=== PATIENT | male | born 1950 | race Caucasian/White ===

== ENCOUNTER → 2024-09-16 | Outpatient (CLI) | payer MEDICARE, BC, OTHER, SELFPAY ==
--- NOTE | 2024-09-16 13:45 | RAD_ITS ---
EXAM: INJ/ASP PABLO JT SHOULD/HIP/KNEE CLINICAL HISTORY: Chronic right hip pain. COMPARISON: None. TECHNIQUE: The procedure as well as the benefits and possible complications were explained to the patient. Informed consent was obtained. The patient was in the supine position. The overlying skin was prepped and draped in the usual sterile fashion. Following local anesthetic application and under direct fluoroscopic guidance, a 22 gauge spinal needle was placed into the right hip joint. 2 cc of Isovue-300 was injected for confirmation. Following this, 6 mg of betamethasone and 3 cc of 1% lidocaine was injected. The patient tolerated the procedure well. FINDINGS: Right hip injection. RAD/Inj/Asp Pablo Jt Should/Hip/Knee IMPRESSION: Successful right hip injection. Reading Location: [facility]
[2024-09-16] MEDS: Lidocaine 2% (5ml sdv) 5 ML VIAL.MPF INFILT (14:11)
[2024-09-16] MEDS: Betamethasone/Betamethasone 30 MG/5 ML Vial 6 MG INTRAARTIC (14:13)
[2024-09-16] MEDS: Lidocaine 1% (5 ml sdv) 5 ML Vial 3 ML OPERA.SITE (14:13)
== END | disposition home or self-care (01) ==
LOC: RAD 13:34
PROVIDERS: PCP Student in an Organized Health Care Education/Training Program; Referring Provider Physician Assistant; Visit Provider Physician Assistant
DX: M25.551 Pain in right hip (principal); G89.29 Other chronic pain
CPT/HCPCS: 20610; 77002; Q9967; J0702

== ENCOUNTER → 2025-05-11 | Outpatient (CLI) | payer MEDICARE, BC, OTHER, SELFPAY ==
--- NOTE | 2025-05-11 10:00 | RAD_ITS ---
PROCEDURE: INJ/ASP PABLO JT SHOULD/HIP/KNEE 05/11/2025 REASON FOR EXAM: PAIN TECHNIQUE: Procedure Code: RADINJ/ASP MJ Modality: DX Procedure: INJ/ASP PABLO JT SHOULD/HIP/KNEE Fluoroscopy time: 84 seconds. Total dosage 24.5 mGy COMPARISON: 09/16/2024 FINDINGS: After obtaining a signed informed consent patient was placed in supine position on fluoroscopy utilized to localize injection location in the right hip. The area is prepped and draped under usual sterile fashion and local anesthesia achieved by 1% lidocaine. A 22 gauge spinal needle was inserted into the right hip joint and contrast injected into the intra-articular space. Injection of lidocaine steroid mixture followed. RAD/Inj/Asp Pablo Jt Should/Hip/Knee IMPRESSION: Successful fluoroscopic guided right hip injection. Reading Location: [place] [id number]
--- NOTE | 2025-05-11 10:00 | RAD_ITS ---
PROCEDURE: INJ/ASP PABLO JT SHOULD/HIP/KNEE 05/11/2025 REASON FOR EXAM: PAIN TECHNIQUE: Procedure Code: RADINJ/ASP MJ Modality: DX Procedure: INJ/ASP PABLO JT SHOULD/HIP/KNEE Fluoroscopy time: 84 seconds. Total dosage 24.5 mGy COMPARISON: 09/16/2024 FINDINGS: After obtaining a signed informed consent patient was placed in supine position on fluoroscopy utilized to localize injection location in the right hip. The area is prepped and draped under usual sterile fashion and local anesthesia achieved by 1% lidocaine. A 22 gauge spinal needle was inserted into the right hip joint and contrast injected into the intra-articular space. Injection of lidocaine steroid mixture followed. RAD/Inj/Asp Pablo Jt Should/Hip/Knee IMPRESSION: Successful fluoroscopic guided right hip injection. Reading Location: [place] [id number]
[2025-05-11] MEDS: Lidocaine 2% (5ml sdv) 5 ML VIAL.MPF INFILT (10:37)
[2025-05-11] MEDS: Betamethasone/Betamethasone 30 MG/5 ML Vial 6 MG INTRAARTIC (10:40)
== END | disposition home or self-care (01) ==
PROVIDERS: PCP Student in an Organized Health Care Education/Training Program; Referring Provider Physician Assistant; Visit Provider Physician Assistant
DX: M16.11 Unilateral primary osteoarthritis, right hip (principal); M25.551 Pain in right hip
CPT/HCPCS: 20610; 77002; J0702